=== PATIENT | female | born 1995 | race American Indian/Alaskan Native ===

== ENCOUNTER 2019-10-04 08:10 | Inpatient (IN) | payer OTHER ==
[~2019-10-04] VITALS: Ht 167.6 cm; Wt 128.0 kg
--- NOTE | ~2019-10-04 | OR ---
[facility] [address], [place] [address] Draft DATE OF OPERATION: 10/18/2019 SURGEON: Tiana Ordonez MD CELERY TIER: Raine Skleton DO. PREOPERATIVE DIAGNOSIS: Term , breech presentation. POSTOPERATIVE DIAGNOSIS: Term , breech presentation, delivered. PROCEDURE: Primary section with low segment transverse uterine incision. ANESTHESIA: Spinal. ESTIMATED BLOOD LOSS: 600 mL. DRAINS: Cruz catheter. INDICATIONS AND FINDINGS: The patient is a 24-year-old female, 1, para 0, admitted at 39 weeks for primary section for breech presentation. The patient has been breeched for the last four weeks. The patient had declined version offered at 37+ weeks. Breech presentation was confirmed prior to surgery. At the time of surgery, she was delivered of a little girl as a complete breech with Apgars of 8 and 9 and weight of 8 pounds and 4 ounces. Uterus, tubes, ovaries, and placenta appeared normal. DESCRIPTION OF PROCEDURE: The patient was prepped and draped in the supine position. A Pfannenstiel skin incision was made. This was carried down through the fascia. The incision was then extended laterally. The inferior and superior fascial flaps were then created. The muscles were bluntly divided and the peritoneum opened bluntly and the incision extended bluntly. The Chauncey retractor was then placed. The incision on the uterus was made at the upper aspect of the peritoneal reflection. Clear fluid was noted. Baby was delivered with PATIENT NAME: VANDANA JANE OPERATIVE REPORT DATE OF : [birth year] REPORT #: [id number] PHYSICIAN: TINAA ORDONEZ MD PCP: MADHAVI RANDALL REPORT IS CONFIDENTIAL AND NOT TO BE RELEASED WITHOUT AUTHORIZATION [facility] [address], [place] [address] Draft the above findings and handed off to the pediatric staff in attendance. The placenta was removed manually. The uterus was explored with a lap tape assuring no remaining fragments. The edges of the incision were identified and the uterus closed in 2 layers using 0 Monocryl. The first layer was a running locking stitch and the second was a vertical imbricating stitch. There was some bleeding along the peritoneal edges and this was controlled with cautery. The abdomen was irrigated, inspected, and good hemostasis was noted. The retractor was removed and the peritoneum identified. Nasal graft was then laid over the lower segment to aid in healing. The peritoneum was then closed in a running suture of 3-0 Vicryl. The muscles were brought together with interrupted sutures of 0 Vicryl. There were perforators on the upper right fascial aspect and these were controlled with [id number] of 0 Vicryl as well. There was also bleeding from a vessel on the right rectus and this also required several [id number] for control of bleeding. This area was then irrigated and good hemostasis was noted. ACell powder was sprinkled over the muscles to aid in healing. The fascia was then closed from each angle to the midline with a running suture of 0 Vicryl. Subcutaneous tissue was irrigated and bleeding points controlled with cautery. The deep space was closed with interrupted sutures of 3-0 Vicryl. The skin was closed with meera. All sponge and needle counts were correct. She tolerated the procedure well and was taken to the recovery room in good condition. MD ASIA Parker/GENEVA /[id number] cc: Raine Skelton DO Copies: RAINE SKELTON DO ~ PATIENT NAME: VANDANA JANE OPERATIVE REPORT DATE OF : 97 REPORT #: [id number] PHYSICIAN: TIANA ORDONEZ MD PCP: MADHAVI RANDALL REPORT IS CONFIDENTIAL AND NOT TO BE RELEASED WITHOUT AUTHORIZATION
[~2019-10-04 08:10] MED LIST: CLARITIN10 MG PO; ERGOCALCIF50000 UNIT PO; LEVORA-281 EACH PO; NORCO 5-325 TA1 EACH PO; PRENATABS RX T1 EACH PO; VITAMIN D1000 UNI1 PO; ZOFRAN4 MG PO
--- NOTE | 2019-10-18 09:22 | NUR ---
10/18/19 0922 Jose A Gibbons 0800) WITH HELP OF L AND Laura RN ASSASSED PATIENT. LIGHT VAGINAL BLEEDING, WITHOUT ABD PAIN. PATIENT WAS C/O MID AREA CHRONIC BACK PAIN. ADJUSTED PATIENT TO A POSITION OF COMFORT. 09) PATIENT MORE COMFORTABLE BABY BREAST FEEDING. REPORT GIVEN TO DELIA BARNES.
--- NOTE | 2019-10-19 09:54 | PR ---
[facility] [address] [facility] [place], [place] [address] Signed PP Progress Notes Datetime Report Generated by CPN: 10/19/2019 09:53 SUBJECTIVE: [id number] Pain: Within normal limits Nausea/Vomiting: Denies Vital Signs: [id number] Vital Signs: Reviewed; Within Normal Limits EXAM: [id number] Cardiovascular: Not Done Respiratory: Not Done Abdomen/Uterus: Abnormal Lochia: Normal Vulva/Perineum: Not Done Breasts: Not Done CVA Tenderness: Not Done Extremities: Normal Incision: Normal Progress: Abnormal Exam Comments: Abdomen with active BS. Fundus firm, NT @ U-1. H/H 7/22.8, WBC 11.4, plat 307k IMPRESSION/PLAN/PROCEDURES: [id number] Impression: Normal progression Other Plans: ambulate, shower Progress Notes: Doing well. She is anemic but tolerating it so far. Signing Physician: Tiana Ordonez MD Copies: ~ *Electronically Signed* 10/19/19 0953 TIANA ORDONEZ MD PATIENT NAME: VANDANA JANE PROGRESS NOTE DATE OF : 97 PHYSICIAN: TIANA ORDONEZ MD RPT #: [id number] REPORT IS CONFIDENTIAL AND NOT TO BE RELEASED WITHOUT AUTHORIZATION
--- NOTE | 2019-10-20 09:35 | PR ---
[facility] [address] [place], [place] [address] Signed PP Progress Notes Datetime Report Generated by CPN: 10/20/2019 09:35 SUBJECTIVE: [id number] Pain: Within normal limits Pain Comments: sl dizzy if she gets up too fast Nausea/Vomiting: Denies Flatus: Yes Bowel Movement: Yes Vital Signs: [id number] Vital Signs: Reviewed; Within Normal Limits EXAM: [id number] Cardiovascular: Normal Respiratory: Normal Abdomen/Uterus: Abnormal Lochia: Normal Vulva/Perineum: Not Done Breasts: Not Done CVA Tenderness: Not Done Extremities: Normal Incision: Normal Progress: Abnormal Exam Comments: Abdomen with active BS. Fundus firm, NT @ U-1. Incision intact without bleeding. H/H 6.3/20.6, plat 272k IMPRESSION/PLAN/PROCEDURES: [id number] Impression: Normal progression Other Impression: significant anemia Other Plans: transfuse 1 unit with f/u H/H Procedures: Transfusion Progress Notes: Doing well but blood count significantly decreased from admit. I do think she would benefit from transfusion of 1 Unit with f/u labs. There is no evidence of obvious bleeding or collection at this time. Signing Physician: Tiana Ordonez MD Copies: *Electronically Signed* 10/20/19 0935 TIANA ORDONEZ MD PATIENT NAME: KELLY VANVANDANA PROGRESS NOTE DATE OF : 97 PHYSICIAN: TIANA ORDONEZ MD RPT #: [id number] REPORT IS CONFIDENTIAL AND NOT TO BE RELEASED WITHOUT AUTHORIZATION [facility] [address] [place] [id number] Signed ~ *Electronically Signed* 10/20/19 0935 TIANA ORDONEZ MD PATIENT NAME: VANDANA JANE PROGRESS NOTE DATE OF : 97 PHYSICIAN: TIANA ORDONEZ MD RPT #: [id number] REPORT IS CONFIDENTIAL AND NOT TO BE RELEASED WITHOUT AUTHORIZATION
--- NOTE | 2019-10-21 07:45 | PR ---
[facility] [address] [facility] [place], [place] [address] Signed PP Progress Notes Datetime Report Generated by CPN: 10/21/2019 07:45 SUBJECTIVE: [id number] Pain: Within normal limits Pain Comments: Feels stronger overall after tx of 1 unit PRBCs Nausea/Vomiting: Denies Flatus: Yes Bowel Movement: Yes Vital Signs: [id number] Vital Signs: Reviewed; Within Normal Limits EXAM: [id number] Cardiovascular: Not Done Respiratory: Not Done Abdomen/Uterus: Abnormal Lochia: Normal Vulva/Perineum: Not Done Breasts: Not Done CVA Tenderness: Not Done Extremities: Normal Incision: Normal Progress: Normal Exam Comments: Abdomen with active BS. Fundus firm, NT @ U-1. H/H 7.8/25.1, WBC 10.8, plat 336k IMPRESSION/PLAN/PROCEDURES: [id number] Impression: Normal progression Other Impression: significant anemia Plan: Discharge Other Plans: transfuse 1 unit with f/u H/H Procedures: Transfusion Progress Notes: Doing well after transfusion. She is ready for D/C. Signing Physician: Tiana Ordonez MD Copies: ~ *Electronically Signed* 10/21/19 0745 TIANA ORDONEZ MD PATIENT NAME: KELLY VANDANA VAN PROGRESS NOTE DATE OF : 97 PHYSICIAN: TIANA ORDONEZ MD RPT #: [id number] REPORT IS CONFIDENTIAL AND NOT TO BE RELEASED WITHOUT AUTHORIZATION
== END 2019-10-21 11:40 | disposition home or self-care (01) | DRG 787 ==
LOC: FBCO 10-07 06:45 → DS 10-07 06:45 → FBC 10-18 06:00 → FBCO 10-18 06:45 → EDSTATUS 10-18 06:45 → MS 10-20 17:13 → FBC 10-20 17:14
PROVIDERS: ADMIT Obstetrics & Gynecology
PROC: 10D00Z1 Extraction of Products of Conception, Low, Open Approach (ICD-10-PCS; principal; 2019-10-18 08:00)
PROC: 30233N1 Transfusion of Nonautologous Red Blood Cells into Peripheral Vein, Percutaneous Approach (ICD-10-PCS; 2019-10-20)
DX: O32.1XX0 Maternal care for breech presentation, not applicable or unspecified (principal); O99.324 Drug use complicating childbirth; Z3A.39 39 weeks gestation of pregnancy; Z37.0 Single live birth; O99.02 Anemia complicating childbirth; D50.9 Iron deficiency anemia, unspecified; O69.81X0 Labor and delivery complicated by cord around neck, without compression, not applicable or unspecified; O99.284 Endocrine, nutritional and metabolic diseases complicating childbirth; E55.9 Vitamin D deficiency, unspecified; O99.214 Obesity complicating childbirth; E66.01 Morbid (severe) obesity due to excess calories; O26.03 Excessive weight gain in pregnancy, third trimester; F12.90 Cannabis use, unspecified, uncomplicated; O28.2 Abnormal cytological finding on antenatal screening of mother; Z79.899 Other long term (current) drug therapy
CPT/HCPCS: 01961; 36415; 85027; 86850; 86900; 86901; 86920; A9270; J0131; J0690; J1100; J1644; J2274; J2370; J2405; J2590; J2765; J7121; P9016

== ENCOUNTER 2020-09-23 20:18 | Emergency (ER) | payer OTHER ==
[~2020-09-23] VITALS: Ht 167.6 cm; Wt 122.7 kg
[~2020-09-23 20:18] MED LIST changes: +CALCIUM 250+D1 EACH PO; +IRON18 MG PO; +NEXPLANON68 MG SUB-Q
[2020-09-23] MEDS ORDERED: CYCLOBENZAPRINE10 MG PO (22:12)
[2020-09-23] MEDS ORDERED: DICLOFENAC SODI75 MG PO (22:12)
== END 2020-09-23 22:25 | disposition home or self-care (01) ==
LOC: ED 20:18
DX: M54.5 Low back pain (principal); Z87.891 Personal history of nicotine dependence; Z79.899 Other long term (current) drug therapy
CPT/HCPCS: 74176; 81001; 84703; 99284-25

== ENCOUNTER 2021-08-04 23:28 | Emergency (ER) | payer OTHER ==
[~2021-08-04] VITALS: Ht 167.6 cm; Wt 111.1 kg
[~2021-08-04 23:28] MED LIST changes: +CYCLOBENZAPRINE10 MG PO; +DICLOFENAC SODI75 MG PO
[2021-08-05] MEDS ORDERED: ZOFRAN4 MG PO (01:46)
[2021-08-05] MEDS ORDERED: MACROBID 100 M100 MG PO (01:46)
[2021-08-06] MEDS ORDERED: REGLAN10 MG PO (16:43)
== END 2021-08-05 02:09 | disposition home or self-care (01) ==
LOC: ED 23:28
DX: O23.41 Unspecified infection of urinary tract in pregnancy, first trimester (principal); O21.9 Vomiting of pregnancy, unspecified; Z87.891 Personal history of nicotine dependence; Z3A.13 13 weeks gestation of pregnancy
CPT/HCPCS: 80053; 81001; 84703; 85007; 85025; 96374; 99284-25; J2405; J7030

== ENCOUNTER 2021-08-06 13:49 | Emergency (ER) | payer OTHER ==
[~2021-08-06] VITALS: Ht 167.6 cm; Wt 111.1 kg
[~2021-08-06 13:49] MED LIST changes: +MACROBID 100 M100 MG PO
--- OUTSIDE RECORDS SUMMARY | 2021-08-06 13:58 | XMS ---
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 Chelle has no Care Guidelines for this patient. Raz VISIT COUNT (12 MO.) 3 [facility] [place] [facility]. TOTAL 3 NOTE: Visits indicate total known visits. ED/C VISIT TRACKING (12 MO.) 08/06/2021 13:50 [facility] [place] TYPE: Emergency COMPLAINT: - N/V 08/04/2021 23:28 [facility] [place] TYPE: Emergency COMPLAINT: - VOMITING/13 WEEKS 09/23/2020 20:19 [facility] [place] TYPE: Emergency COMPLAINT: - BACK PAIN/ NON INJ DIAGNOSES: - Personal history of nicotine dependence - Low back pain - Other filler leaf cutter long (current) drug therapy INPATIENT VISIT TRACKING (12 MO.) No inpatient visits to display in this time frame [email or web address]
[2021-08-06] MEDS ORDERED: REGLAN10 MG PO (16:43)
== END 2021-08-06 17:00 | disposition home or self-care (01) ==
LOC: ED 13:49
DX: O99.612 Diseases of the digestive system complicating pregnancy, second trimester (principal); K29.00 Acute gastritis without bleeding; Z87.891 Personal history of nicotine dependence; Z90.49 Acquired absence of other specified parts of digestive tract; Z3A.14 14 weeks gestation of pregnancy
CPT/HCPCS: 80053; 80500; 81001; 83690; 85025; 96374; 96375; 99284-25; J1790; J2405; J2765; J7030

== ENCOUNTER 2021-08-18 13:46 | Observation (INO) | payer OTHER ==
[~2021-08-18] VITALS: Ht 167.6 cm; Wt 113.5 kg
[~2021-08-18 13:46] MED LIST changes: +REGLAN10 MG PO
--- OUTSIDE RECORDS SUMMARY | 2021-08-18 13:56 | XMS ---
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 Care History Medical/Surgical 08/09/2021 [facility] - PATIENT IS [facility] ELIGIBLE, \T\middot;\T\nbsp; PLEASE REFER PATIENT TO [facility] FOR NON EMERGENT MEDICAL NEEDS. \T\middot;\T\nbsp; [facility] CAN SEE PATIENTS SAME DAY FOR APTS IF PATIENT CALLS FIRST THING IN THE MORNING. E.D. VISIT COUNT (12 MO.) 1 [facility] [address] TOTAL 5 NOTE: Visits indicate total known visits. ED/UCC VISIT TRACKING (12 MO.) 08/18/2021 13:47 [facility] [place] TYPE: Emergency COMPLAINT: - DEHYDRATED, N/V, LEG CRAMPS, DIZZY 08/11/2021 14:53 [facility] [place] TYPE: Emergency DIAGNOSES: - Nausea with vomiting, unspecified - 10 weeks gestation of - DIZZY, DEHYDRATED 08/06/2021 13:50 [facility] [place] TYPE: Emergency COMPLAINT: - N/V DIAGNOSES: - 14 weeks gestation of - Acute gastritis without bleeding - Vomiting of , unspecified - Diseases of the digestive system complicating , second trimester - Acquired absence of other specified parts of digestive tract - Personal history of nicotine dependence 08/04/2021 23:28 [facility] [place] TYPE: Emergency COMPLAINT: - VOMITING/13 WEEKS DIAGNOSES: - Vomiting of , unspecified - 13 weeks gestation of - Personal history of nicotine dependence - Unspecified infection of urinary tract in , first trimester 09/23/2020 20:19 [facility] [place] TYPE: Emergency COMPLAINT: - BACK PAIN/ NON INJ DIAGNOSES: - Personal history of nicotine dependence - Low back pain - Other warp dyeing vat tender (current) drug therapy INPATIENT VISIT TRACKING (12 MO.) No inpatient visits to display in this time frame [email or web address]
--- NOTE | 2021-08-18 18:15 | NUR ---
PT ARRIVES TO MED SURG UNIT VIA STRETCHER FROM ED. PT ABLE TO WALK TO BED. STATES LIGHTHEADED WITH AMBULATION, NAUSEA IS TOLERABLE AT THIS TIME. DENIES NEEDING TO VOID. HX AND ASSESSMENT COMPLETE, PT STATES SLIGHT PAIN IN BOTH CALVES "CRAMPING" STARTED WITH . PT REPORTS NOT EATING SOLID FOOD FOR 1 MONTH. IVF INFUSING WNL. PT NPO. VSS, A+O. ORIENTED TO ROOM AND CALL LIGHT SYSTEM. NO FURTHER NEEDS AT THIS TIME, WILL CONTINUE PLAN OF CARE
--- NOTE | 2021-08-18 21:04 | NUR ---
DR HADLEY CALLED THIS FACILITY, UPDTE GIVEN ON PT. NEW ORDERS. NPO X ICE CHIPS. INCREASED IVF D5LR AT 200CC/HR AND ADD 10MEQ KCL TO EACH BAG IVF CONTIUOUES. CMP AND MAG IN AM, PROMETHAZINE 12.5MG IV Q4PRN FOR N/V SECOND CHOICE
--- NOTE | 2021-08-18 21:13 | NUR ---
PATIENT VITALS IS AND OS CHARTED. ASSISTED PT. TO BATHROOM. PATIENT ROOM TIDIED, CALL LIGHT LEFT WITHIN REACH NO OTHER IMMEDIATE NEEDS AT THIS TIME.
--- NOTE | 2021-08-18 22:14 | NUR ---
c/o feeling nauseated, medicated with phenergan 12.5mg iv
--- NOTE | 2021-08-19 00:20 | NUR ---
TOLERATING NEW IVF WITH k, NO FURTHER C/O FEELING NAUSEATED. TURNS AND REPOSITIONS SELF IN BED
--- NOTE | 2021-08-19 02:05 | NUR ---
IN TO GET VITALS, PT RESTING COMFORTABLY AND HAS NO CURRENT NEEDS AT THIS TIME
--- NOTE | 2021-08-19 04:28 | NUR ---
AWAKES EASILY, TURNS AND REPOSITIONS SELF IN BED, NO FURTHER CO N/V IR DRY HEAVING
--- NOTE | 2021-08-19 06:15 | NUR ---
in to get vitlas, pt up to void at this time, pt requesting nalivier lugo, rn informed, no further needs at this time
--- NOTE | 2021-08-19 06:18 | NUR ---
Pt has slept well this shift, semi independent in room, on room air, was medicated with zofran and Phenerga per dry heaving and feeling nauseated, effective, NPO X ice chips, tolerating well, no emesis. has tolerated IVF w K at 200cc an hour as per orders, lungs clear. no cough. IVF infusing w/o problems, turns and repositions self. Pt is 11 weeks .
--- NOTE | 2021-08-19 06:37 | NUR ---
c/o dry heaving, no emesis, medicated with Zofran 4mg IV, tolerating ice chips
--- NOTE | 2021-08-19 07:30 | NUR ---
BEDSIDE REPORT FROM BROCK RN, PT ALERT AND CALLED TO REQUEST MORE ICE CHIPS
--- NOTE | 2021-08-19 09:07 | NUR ---
PT RESTING QUIETLY IN BED, EYES CLOSED RR EVEN REGULAR. NO DISTRESS NOTED. WILL ROUND BACK TO ALLOW FOR PATIENT REST AT THIS TIME.
[2021-08-19] MEDS ORDERED: PROMETHEGAN25 MG PR (09:54)
[2021-08-19] MEDS ORDERED: ONDANSETRON ODT8 MG PO (09:54)
[2021-08-19] MEDS ORDERED: M-NATAL PLUS T1 EACH PO (09:55)
[2021-08-19] MEDS ORDERED: PROCHLORPERAZIN10 MG PO (09:55)
[2021-08-19] MEDS ORDERED: VITAMIN B-650 MG PO (09:56)
--- NOTE | 2021-08-19 10:30 | NUR ---
PATIENT SLEEPING. STAFF STATES NO KNOWN BARRIERS TO D/C HOME WITH FAMILY AT THIS TIME. WILL F/U IF NEEDED.
--- NOTE | 2021-08-19 10:45 | NUR ---
MED REC COMPLETE
--- NOTE | 2021-08-19 12:04 | NUR ---
PT REQUESTS MORE ICE CHIPS AT THIS TIME. SHE SAID SHE HAD BEEN SLEEPING. ALERT TO STAFF IN ROOM TO CHECK IV SITE.
--- NOTE | 2021-08-19 13:33 | NUR ---
PT UP TO BATHROOM, SBA NO REPORTS OF NAUSEA OR PAIN. SHE REPORTS SHE HAS BEEN SLEEPING OFF AND ON.
--- NOTE | 2021-08-19 13:57 | NUR ---
PT ASKED OIL FIELD EQUIPMENT MECHANIC SUPERVISORRaghavendra ADAM WHEN SHE MIGHT GET TO EAT SHE IS FEELING VERY HUNGRY. SAID HE WILL RE-EVALUATE THIS AFTERNOON AFTER 1500 LABS COME BACK
--- NOTE | 2021-08-19 17:51 | NUR ---
CALLED PT VERBALIZED SHE IS DESPERATE TO HAVE SOMETHING MORE THAN ICE CHIPS, SHE REPORTED THAT SHE FEELS THAT HALF HER NAUSEA FEELS LIKE IT IS FROM HUNGER AT THIS TIME, NEW ORDERS GIVEN TO START ON CLEARS AND ADVANCE SLOWLY.
--- NOTE | 2021-08-19 20:40 | NUR ---
PT CALLED ASKING FOR NAUSEA MEDS. IN ROOM TO TALK WITH PT ABOUT ZOFRAN VS PHENERGAN. PT DECIDED TO WAIT UNTIL SHE CAN HAVE THE ZOFRAN AGAIN. BROUGHT PT MORE BROTH, SHE DENIES FURTHER NEEDS AT THIS TIME. CALL LIGHT IS CLOSE.
--- NOTE | 2021-08-19 22:01 | NUR ---
in bed, turns and repositions self, moist productive cough pf white foamy phlegm, lungs clear bilat , K rider and IVF infusing w/o problem. tolerating clear liquids. no emesis, was medicated with Zofran 4mg IV per dry heaving. call light and fluids at bedside, alert and oriented
--- NOTE | 2021-08-20 04:44 | NUR ---
PT HAS SLEPT MOST OF THIS SHIFT, SBA, ON ROOM AIR, TOLERATING CLEAR WELL, C/O DRY HEAVING AND WAS MEDICATED WITH ZOFRAN, EFFECTIVE, NO EMESIS, DIET ADVANCED TO REGULAR FOR BREAKFAS. AND SOFT, VOIDING QS, IVF INFUSING, RECEIVED K RIDER AND TOLERATED WELL. ALERT, ORIENTED AND COOP WITH ASSESSMENTS
--- NOTE | 2021-08-20 05:32 | NUR ---
COOP WITH ASSESSMENTS, NO C/O N/V OR DRY HEAVING AT THIS TIME, VOIDED DARK YELLOW URINE, TOLERATING CLEAR LIQUIDS, UPDATED TO REGULAR DIET.
--- NOTE | 2021-08-20 09:17 | NUR ---
PT RESTING QUIETLY IN BED, EYES CLOSED RR EVEN/SHALLOW AT 18 BPM NO DISTRESS NOTED. PT APPEARS TO BE SLEEPING.
--- NOTE | 2021-08-20 10:56 | NUR ---
Vitals, I&Os are complete.
--- NOTE | 2021-08-20 14:00 | NUR ---
PT HAD CHICKEN NOODLE SOUP AND HAS TOLERATED THAT WELL. NO REPORTS OF NAUSEA. HER MOTHER IS AT BEDSIDE
--- NOTE | 2021-08-20 14:12 | NUR ---
PT REPORTS HER IV HAS A MILD STING, POTASSIUM RIDER IS INFUSING, THE SITE IS NOT RED/SWOLLEN/HOT, ON ASSESSMENT WNL. THIS RN OFFERED THAT IF IT IS BOTHERING HER, I COULD START A NEW IV SITE FOR YOU. SHE SAID IT IS NOT BAD.
--- NOTE | 2021-08-20 14:41 | NUR ---
Patient vitals, I&Os are complete. Patient is getting meal orders for tonight and tomorrow.
--- NOTE | 2021-08-20 15:38 | NUR ---
PT REPORTS SHE IS PASSING FLATUS, NO BM YET. NO REPORT OF NAUSEA. V/S STABLE. GOOD QUANTITY SUFFICIENT URINE OUT.
--- NOTE | 2021-08-20 16:30 | NUR ---
CALLED TO UPDATE ON PATIENT LABS AND PATIENT TOLERATING DIET WELL.
[2021-08-20] MEDS ORDERED: REGLAN10 MG PO (17:17)
--- NOTE | 2021-08-20 17:49 | NUR ---
DISCHARGE PACKET WITH EDUCATIONS PROVIDED TO PT AND MOTHER AT BEDSIDE. DISCUSSED MEDICATIONS LAST DOSE AND NEXT DOSE. GSVR EDUCATION ON SIGNS OR SYMPTOMS TO SEEK MEDICAL CARE. ALSO EDUCAITON ON HYPEREMESIS WITH PREGNENCY. DISDCUSSED BEST PLAN FOR MEALS AND SNACKS, BLAN AND NO SPICY FOR NOW. PT HAS BEEN VERY CAUTIOUS WITH ADVANCEMENT OF DIET. IV SITE REMOVED WNL, TIP INTACT, SITE WNL.
== END 2021-08-20 18:05 | disposition home or self-care (01) ==
LOC: ED 13:46 → MS 13:48
PROVIDERS: ADMIT General Practice; ATTEND General Practice
DX: O21.1 Hyperemesis gravidarum with metabolic disturbance (principal); O99.281 Endocrine, nutritional and metabolic diseases complicating pregnancy, first trimester; E83.42 Hypomagnesemia; O34.219 Maternal care for unspecified type scar from previous cesarean delivery; Z3A.11 11 weeks gestation of pregnancy; Z87.891 Personal history of nicotine dependence; Z20.822 Contact with and (suspected) exposure to COVID-19
CPT/HCPCS: 80053; 81001; 83690; 83735; 85025; 96365; 96366; 96375; 99284-25; J2405; J2550; J3411; J3475; J3480; J7060; J7120; J7121; U0003

== ENCOUNTER 2021-08-29 12:06 | Emergency (ER) | payer OTHER ==
[~2021-08-29] VITALS: Ht 167.6 cm; Wt 115.7 kg
[~2021-08-29 12:06] MED LIST changes: +M-NATAL PLUS T1 EACH PO; +ONDANSETRON ODT8 MG PO; +PROCHLORPERAZIN10 MG PO; +PROMETHEGAN25 MG PR; +VITAMIN B-650 MG PO
--- OUTSIDE RECORDS SUMMARY | 2021-08-29 12:14 | XMS ---
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 Care History Medical/Surgical 08/09/2021 [facility] - PATIENT IS [facility] ELIGIBLE, \T\middot;\T\nbsp; PLEASE REFER PATIENT TO [facility] FOR NON EMERGENT MEDICAL NEEDS. \T\middot;\T\nbsp; [facility] CAN SEE PATIENTS SAME DAY FOR APTS IF PATIENT CALLS FIRST THING IN THE MORNING. E.D. VISIT COUNT (12 MO.) 1 [facility] 5 [facility] TOTAL 6 NOTE: Visits indicate total known visits. ED/UCC VISIT TRACKING (12 MO.) 08/29/2021 12:06 [facility] [place] TYPE: Emergency COMPLAINT: - VOMITING, 12 WKS 08/18/2021 13:47 [facility] [place] TYPE: Emergency COMPLAINT: - DEHYDRATED, N/V, LEG CRAMPS, DIZZY 08/11/2021 14:[address] [facility] OR TYPE: Emergency DIAGNOSES: - Nausea with [...] dependence - Low back pain - Other half-way (current) drug therapy INPATIENT VISIT TRACKING (12 MO.) 08/18/2021 13:48 [facility] [place] TYPE: Observation COMPLAINT: - HYPEREMISIS GRAVIDARUM DIAGNOSES: - Endocrine, nutritional and metabolic diseases complicating , first trimester - Vomiting of , unspecified - Personal history of nicotine dependence - 11 weeks gestation of - Hypomagnesemia - Hyperemesis gravidarum with metabolic disturbance - Maternal care for unspecified type scar from previous delivery [email or web address]
[2021-08-29] MEDS ORDERED: ONDANSETRON ODT8 MG PO (15:43)
[2021-08-29] MEDS ORDERED: REGLAN10 MG PO (15:43)
== END 2021-08-29 17:51 | disposition home or self-care (01) ==
LOC: ED 12:06
DX: O21.0 Mild hyperemesis gravidarum (principal); Z87.891 Personal history of nicotine dependence; Z3A.12 12 weeks gestation of pregnancy
CPT/HCPCS: 80053; 80500; 81001; 83690; 83735; 85025; 96374; 96375; 96376; 99284-25; A9270; J2405; J2765; J7030; J7121

== ENCOUNTER 2022-02-10 14:24 | Inpatient (IN) | payer OTHER ==
--- NOTE | 2022-03-01 10:31 | NUR ---
03/01/22 1031 Jory Saavedra 1010 PT ARRIVED IN PACU WIDE AWAKE WITH NO C/O'S. AT BEDSIDE HOLDING BABY. 1015 MOM BREAST FEEDING BABY WITH HELP FROM [facility] RN. 1030 CONTINUES TO BREAST FEED WITH NO C/O'S.
--- NOTE | 2022-03-02 01:47 | OR ---
[facility] [address] [place], [place] [address] Signed DATE OF OPERATION: 03/01/2022 SURGEON: Rad Mcgee MD PREOPERATIVE DIAGNOSES: 1. Term . 2. Previous section. POSTOPERATIVE DIAGNOSES: 1. Term . 2. Previous section. PROCEDURES: Repeat low transverse segment section, delivery of live male . [employer] PROCESSOR: Aldair Skelton D.O. ANESTHESIA: Spinal. ESTIMATED BLOOD LOSS: Blood loss 600 mL. COMPLICATIONS: None. DRAINS: Cruz to bladder. FINDINGS: Live male . Apgars 9/9. Weight 7 pounds 1 oz. Normal uterus with a thin lower uterine segment. Normal tubes and ovaries bilateral. DESCRIPTION OF PROCEDURE: The patient was brought to the operating room, placed in supine position. After adequate spinal anesthesia was obtained, the patient was prepped and draped in usual sterile fashion. Cruz catheter placed in the bladder. A Pfannenstiel skin incision was made through the previous surgical scar using a scalpel. Subcutaneous tissue and Electronically Signed By: RAD MCGEE MD 03/02/22 0147 PATIENT NAME: VANDANA JANE OPERATIVE REPORT DATE OF : [birth year] REPORT #: [id number] PHYSICIAN: RAD MCGEE MD PCP: [facility] REPORT IS CONFIDENTIAL AND NOT TO BE RELEASED WITHOUT AUTHORIZATION [facility] [address] [place], [place] [address] Signed scar tissue were dissected with a scalpel. The fascia was nicked with scalpel and extended in transverse fashion using curved scissors. The underlying abdominal musculature was also slightly scarred, but it was bluntly and sharply from the fascia above and below the incision. The abdominal musculature was grasped with hemostats in the midline near the upper portion of the dissection. Two hemostats elevated in the midline and Soriano scissors were used to carefully josselyn the scar tissue in the midline. A finger was placed in the incision and the anterior wall peritoneum was identified, grasped with hemostats, elevated and nicked with scissors. The incision was extended in a vertical fashion along the midline under direct visualization using curved scissors. The Chauncey self-retaining retractor was then inserted into the incision and tightened in place. The lower uterine segment was identified, it was noted to be quite thin, but no window noted. The lower uterine segment was carefully nicked with a scalpel in the midline. Bulging bag clear fluid came from the incision. The incision was extended in transverse fashion using finger dissection and then pickups with teeth used to open the amniotic sac. The infant was noted to be in vertex presentation. Infant head was easily delivered from the incision. The rest of the was easily delivered from the incision. The cord doubly clamped and cut. The passed off table in good condition to awaiting nurse. The placenta was manually removed. Uterine cavity explored with a lap pad to remove any retained membranes. An angle stitch of 0-Monocryl was placed at one end of the incision and a running locking stitch of 0-Monocryl starting at the other end used to close the incision. A second running stitch of 0-Monocryl was used to imbricate the first layer. There was slight bleeding in the midline and just to the right of midline at the incision, and so two [id number]-ra-[id number] stitches were placed in this area, which did seem to control any bleeding. The entire pelvis was irrigated, suctioned, and examined, and any superficial bleeding spots cauterized with the Bovie. Tisseel was then placed over the incision to further help with hemostasis. The Chauncey self-retaining retractor was removed. The anterior wall peritoneum closed using running stitch of 2-0 Vicryl suture. The abdominal musculature was reapproximated using interrupted stitches of 0-Vicryl suture. The abdominal wall incision was irrigated, suctioned, and examined, and any bleeding spots cauterized with the Bovie. The fascia was closed using two running stitches of 0-Vicryl suture meeting in the midline. The subcutaneous tissue was closed using interrupted stitches of 3-0 Vicryl suture and the skin reapproximated using 4-0 Vicryl in a subcuticular stitch. Steri-Strips were placed over the incision to further support the incision. The patient tolerated the procedure well, went to the recovery room in good condition. The sponge, needle, and instrument counts were correct at the end of the procedure. Rad Mcgee MD Electronically Signed By: RAD MCGEE MD 03/02/22 0147 PATIENT NAME: VANDANA JANE OPERATIVE REPORT DATE OF : [birth year] REPORT #: [id number] PHYSICIAN: RAD MCGEE MD PCP: [facility] REPORT IS CONFIDENTIAL AND NOT TO BE RELEASED WITHOUT AUTHORIZATION [facility] [address] [place] [id number] Signed [facility] /[id number] Copies: ~ Electronically Signed By: RAD MCGEE MD 03/02/22 0147 PATIENT NAME: VANDANA JANE OPERATIVE REPORT DATE OF : [birth year] REPORT #: [id number] PHYSICIAN: RAD MCGEE MD PCP: [facility] REPORT IS CONFIDENTIAL AND NOT TO BE RELEASED WITHOUT AUTHORIZATION
--- NOTE | 2022-03-02 12:22 | PR ---
[facility] [address] [facility] [place], [place] [address] Signed PP Progress Notes Datetime Report Generated by CPN: 03/02/2022 12:22 SUBJECTIVE: [id number] Pain: Within Normal Limits Nausea/Vomiting: Denies Vital Signs: [id number] Vital Signs: Reviewed; Within Normal Limits Notable Details: PP Hgb/Hct = 9.2/29.9 Abdomen/Uterus: Normal Lochia: Normal Extremities: Normal Incision: Normal IMPRESSION/PLAN/PROCEDURES: [id number] Impression: Normal Progression Other Impression: PP Anemia Plan: Continue Present Management Procedures: None Progress Notes: Doing well ,without compalint, moving, eating without difficulty, voiding without difficulty. Continue to increase activity as tolerated. Signing Physician: Skye Hadley MD Copies: ~ *Electronically Signed* 03/02/22 1222 SKYE HADLEY MD PATIENT NAME: VANDANA JANE PROGRESS NOTE DATE OF : [birth year] PHYSICIAN: SKYE HADLEY MD RPT #: [id number] REPORT IS CONFIDENTIAL AND NOT TO BE RELEASED WITHOUT AUTHORIZATION
--- NOTE | 2022-03-03 09:14 | PR ---
[facility] [address] [facility] [place] [address] Signed PP Progress Notes Datetime Report Generated by CPN: 03/03/2022 09:14 SUBJECTIVE: [id number] Pain: Within Normal Limits Nausea/Vomiting: Denies Vital Signs: [id number] Vital Signs: Reviewed; Within Normal Limits Notable Details: PP Hgb/Hct = 9.2/29.9 EXAM: Ongoing Abdomen/Uterus: Normal Lochia: Normal Extremities: Normal Incision: Normal IMPRESSION/PLAN/PROCEDURES: [id number] Impression: Normal Progression Other Impression: PP Anemia Plan: Discharge Procedures: None Progress Notes: Doing well, without complaint, ready to go home. Signing Physician: Skye Hadley MD Copies: ~ *Electronically Signed* 03/03/22913 SKYE HADLEY MD PATIENT NAME: VANDANA JANE PROGRESS NOTE DATE OF : [birth year] PHYSICIAN: SKYE HADLEY MD RPT #: [id number] REPORT IS CONFIDENTIAL AND NOT TO BE RELEASED WITHOUT AUTHORIZATION
== END 2022-03-03 13:49 | disposition home or self-care (01) | DRG 788 ==
LOC: FBC 03-01 06:06
PROVIDERS: ADMIT General Practice; ATTEND General Practice
PROC: 10D00Z1 Extraction of Products of Conception, Low, Open Approach (ICD-10-PCS; principal; 2022-03-01 07:00)
DX: O34.211 Maternal care for low transverse scar from previous cesarean delivery (principal); Z37.0 Single live birth; Z3A.39 39 weeks gestation of pregnancy; O99.02 Anemia complicating childbirth; Z90.49 Acquired absence of other specified parts of digestive tract; D64.9 Anemia, unspecified
CPT/HCPCS: 36415; 85027; 85060; 86850; 86870; 86900; 86901; A9270; J0690; J1200; J1644; J2001; J2250; J2274; J2405; J2590; J3010; J7121; U0003